=== PATIENT | male | born 1955 | race Caucasian/White ===

== ENCOUNTER 2019-07-06 05:08 | Emergency (ER) | payer BC ==
[~2019-07-06] VITALS: Ht 185.4 cm; Wt 102.1 kg
[~2019-07-06 05:08] MED LIST: ALLOPURINOL 30300 M1 PO; FLEXERIL PO; HYDROCODON-ACE1 EAC7 PO; IBUPROFEN 800800 M1 PO; PERCOCET PO; PRILOSEC 20 MG20 MG PO; TOPROL XL50 MG PO; ZESTORETIC 20-1 EACH PO
[2019-07-06] MEDS ORDERED: MITIGARE0.6 MG PO ×2 (05:44→06:22)
[2019-07-06] MEDS ORDERED: ALLOPURINOL 10100 M3 PO (05:44)
[2019-07-06] MEDS ORDERED: KEFLEX500 M1 PO (05:45)
[2019-07-06 06:01] LABS: MCV 87.6 fL (80.0-100.0); MPV 8.3 fl. (7.2-11.1)
[2019-07-06 06:03] LABS: ABSOLUTE BASOPHILS 0.1 thou/uL (0.0-0.2); ABSOLUTE EOSINOPHILS 0.1 thou/uL (0.0-0.7); ABSOLUTE LYMPHOCYTES 1.2 thou/uL (0.8-5.3); ABSOLUTE MONOCYTES 1.3 thou/uL (0.0-1.2); ABSOLUTE NEUTROPHILS 7.4 thou/uL (1.6-8.1); BASOPHILS 1.1 %; EOSINOPHILS 1.1 %; HEMATOCRIT 38.8 % (42.0-52.0); HEMOGLOBIN 13.2 gm/dL (14.0-18.0); LYMPHOCYTES 12.1 %; MCH 29.9 pg (26.0-34.0); MCHC 34.1 g/dL (28.0-37.0); MONOCYTES 12.4 %; NUCLEATED RBCS 0 /100WBC; PLATELET COUNT* 210 thou/uL (150-400); POLYS 73.3 %; RBC 4.43 mil/uL (4.50-6.00); RDW-CV 13.8 % (10.5-14.5); WBC 10.1 thou/uL (4.0-11.0)
[2019-07-06] MEDS ORDERED: NEURONTIN300 MG PO (06:19)
[2019-07-06 06:23] LABS: CALCIUM 8.9 mg/dL (8.5-10.1); CREATININE 0.9 mg/dL (0.6-1.3); POTASSIUM 4.1 mmol/L (3.5-5.1)
[2019-07-06 06:26] LABS: URIC ACID* 4.4 mg/dL (2.6-7.2)
[2019-07-06 06:27] VITALS: BP 151/77
== END 2019-07-07 00:34 | disposition left against medical advice (07) ==
LOC: M.ERS 05:08
PROVIDERS: Personal Emergency Response Attendant
DX: M10.072 Idiopathic gout, left ankle and foot (principal); I10 Essential (primary) hypertension

== ENCOUNTER 2019-07-08 05:11 | Inpatient (IN) | payer BC ==
[~2019-07-08] VITALS: Ht 188 cm; Wt 103.9 kg
--- NOTE | ~2019-07-08 | CON ---
[address] [address] CONSULTATION Name: ANTONELLAREHMAN WILFRED Room: [address] ADM IN M.R.#: [id number] Admission: 07/08/19 Attend Phys: Hallie Gibson Discharge: Date of : 57 Report #: [id number] THIS REPORT FOR: //name// CC: Daly Novak DATE OF SERVICE: 07/10/2019 CHIEF COMPLAINT: Postoperative day #1 for incision and drainage of left foot with soft tissue debridement for deep tissue infection. Preoperative and operative cultures pending. He is on parenteral vancomycin and ceftriaxone with good tolerance. He had PICC line placed today. Arterial Doppler studies performed today with pending report. He relates his pain is 2/10, well controlled with hydrocodone. He is nonweightbearing using a walker. No new labs for review. PHYSICAL EXAMINATION: The inflammation substantially decreased since yesterday. Large open wound with red granulation and some pale yellowish fibrosis. No active bleeding, no fluctuance or crepitation. There is a scant covering of the tissue over the 4th and 5th metatarsals. No fluctuance or crepitation. The foot is warm with no pallor, cyanosis or signs of acute vascular embarrassment. No popliteal adenopathy, negative Homans' or Bronson sign in either leg. IMPRESSION: Deep tissue infection, left foot, status post incision and drainage. PLAN: The wound was cleansed, dried and repacked with Nanosys, covered with ABDs, Kerlix and Terence. The patient to remain strictly nonweightbearing to the extremity. By: 1228 [id number] Morris DPM /nt
--- NOTE | ~2019-07-08 | CON ---
[address] [address] CONSULTATION Name: SHERIE BERMAN Room: [address] ADM IN M.R.#: [id number] Admission: 07/08/19 Attend Phys: Hallie Gibson Discharge: Date of : 57 Report #: [id number] THIS REPORT FOR: //name// CC: Daly Novak DATE OF SERVICE: 07/08/2019 ADDENDUM An aerobic and anaerobic swab cultures were taken from the abscess after it was incised. By: 1900 Dlandy Morris DPM /juan m
--- NOTE | ~2019-07-08 | OP ---
[facility] [address] [place] [address] OPERATIVE REPORT Name: ANTONELLAREHMANDEAN HARDIN Room: [address] IN M.R.#: [id number] Admission: 07/08/19 Attend Phys: Hallie Gibson Discharge: Date of : 57 Report #: [id number] THIS REPORT FOR: //name// CC: Daly Novak DATE OF SERVICE: 07/09/2019 SURGEON: Chan Morris DPM. PREOPERATIVE DIAGNOSIS: Abscess with deep soft tissue infection, left foot. POSTOPERATIVE DIAGNOSIS: Abscess with deep soft tissue infection, left foot. PROCEDURES: 1. Incision and drainage, left foot. 2. Debridement of wound with excision of muscle, tendon, and subcutaneous tissue from the deep fascial layer. 3. Curettage of left cuboid and proximal fourth and fifth metatarsal bones. ANESTHESIA: MAC. INJECTABLES: 30 mL of a 1:1 mixture of 0.5% Marcaine plain and 1% lidocaine plain preoperatively, and 10 mL of 0.5% Marcaine plain intraoperatively. CULTURES: Soft tissue, left foot, aerobic and anaerobic. ESTIMATED BLOOD LOSS: Minimal. TOURNIQUETS: None. COMPLICATIONS: None. DESCRIPTION OF PROCEDURE: The patient was brought to the OR and placed on the table supine with induction of MAC anesthesia. Local anesthetic block was given proximal to the deep tissue infection and the extremity was prepped and draped aseptically. A #10 blade was used to excise the existing ulceration with 2 semielliptical converging incisions, which was then sent for soft tissue aerobic and anaerobic culture. I then extended the incision proximally and distally with a #10 blade down to the bone and excised all visible necrotic soft tissue to include muscle, tendon, and deep subcutaneous tissue. The cuboid and base of the 4th and 5th metatarsals were visualized and curettaged with no lysis or signs of bone destruction noted. Electrocautery was used for hemostasis and the wound was flushed with sterile saline with bacitracin irrigant [place] [address] OPERATIVE REPORT Name: SHERIE BERMAN Room: [address] IN M.R.#: [id number] Admission: 07/08/19 Attend Phys: Hallie Gibson Discharge: Date of : 57 Report #: [id number] surgical wound was packed with Aquacel Ag and covered with fluffs, ABDs, Kerlix, and Terence bandage. The patient left the OR with no bleeding or pain. By: 54 Tejas Morris DPM /juan m
--- NOTE | ~2019-07-08 | CON ---
[address] [address] CONSULTATION Name: SHERIE BERMAN Room: [address] IN M.R.#: [id number] Admission: 07/08/19 Attend Phys: Hallie Gibson Discharge: Date of : 57 Report #: [id number] THIS REPORT FOR: //name// CC: Daly Novak ADMISSION DIAGNOSIS: Deep tissue infection, left foot. CHIEF COMPLAINT/HISTORY OF PRESENT ILLNESS: The patient admitted through the Emergency Department for increased redness, pain and drainage from the right dorsal lateral foot. He was seen in the Emergency Department 2 days ago regarding ongoing inflammation and pain to the dorsal lateral foot, which was thought to be gout and treated with colchicine. He has also restarted allopurinol with no decrease in pain or swelling. He was placed on cephalexin 500 mg p.o. b.i.d. and gabapentin 300 mg t.i.d. for infection and nerve pain. He was also placed on colchicine. He denies fevers or malaise, had some chills yesterday. He denies injury to the left foot or knowledge of skin abrasions or other lesions, which could be a portal of entry for the infection. He is on parenteral vancomycin and ceftriaxone with good tolerance. He is taking ibuprofen pain controlled with ibuprofen with hydrocodone 5/325 and ibuprofen. He is currently resting comfortably with mild pain, he has good appetite, denies fevers, chills, nausea or malaise. CT x-rays were negative for bone destruction, CT scan suggestive of abscess to the dorsal lateral foot with no bone changes. LABORATORY DATA: WBC 12.2, RBC 4.35, hemoglobin 12.9, hematocrit 38.0, platelets 265. BUN 15, creatinine 1.0, glucose 112. Albumin 3.1. Blood cultures pending x 2. PHYSICAL EXAMINATION: Temperature 98.4, pulse 70, respirations 18, blood pressure 102/63. Left foot has severe inflammation consistent with deep soft tissue infection with likely abscess. There is a wound to the dorsal lateral foot roughly 1.0 x 1.0 x 1.0 cm. The area is fluctuant. No crepitation. I am able to express purulence from the wound and it is exquisitely tender. This advanced inflammation consistent with cellulitis surrounding the area and extending to the ankle and lower leg. His foot is warm with good color. His foot has palpable dorsalis pedis and posterior tibial pulses, no pallor or cyanosis. No calf, no popliteal adenopathy noted. No lesions noted to the contralateral extremity. IMPRESSION: Deep tissue infection with abscess, right dorsal lateral foot. PLAN: The patient signed consent for incision and drainage of the left foot wound. I performed a local field block with 30 mL of 0.5% Marcaine plain and upon adequate and anesthesia was checked and found to be adequate. I performed a 2 cm incision over the existing wound with #10 blade and I expressed 2 mL of purulence. The wound was flushed with sterile saline and packed with dried and [address] [place] [place] [address] CONSULTATION Name: SHERIE BERMAN Room: [address] IN [facility]#: [id number] Admission: 07/08/19 Attend Phys: Hallie Gibson Discharge: Date of : 57 Report #: [id number] packed with Aquacel Ag and covered with Aquacel Ag, ABDs, Kerlix and Terence bandage. The patient to remain strictly nonweightbearing to the foot. I will keep him n.p.o. past midnight in case I decided to perform further surgical debridement tomorrow afternoon. I will check on him tomorrow for further. By: 1859 [id number] Morris DPM /juan m
[~2019-07-08 05:11] MED LIST changes: +ALLOPURINOL 10100 M3 PO; +KEFLEX500 M1 PO; +MITIGARE0.6 MG PO; +NEURONTIN300 MG PO
[2019-07-08 05:16] VITALS: BP 160/75
[2019-07-08 05:49] LABS: ABSOLUTE BASOPHILS 0.2 thou/uL (0.0-0.2); ABSOLUTE EOSINOPHILS 0.2 thou/uL (0.0-0.7); ABSOLUTE LYMPHOCYTES 1.2 thou/uL (0.8-5.3); ABSOLUTE MONOCYTES 1.6 thou/uL (0.0-1.2); ABSOLUTE NEUTROPHILS 9.2 thou/uL (1.6-8.1); BASOPHILS 1.2 %; EOSINOPHILS 1.4 %; HEMOGLOBIN 12.9 gm/dL (14.0-18.0); LYMPHOCYTES 9.5 %; MCH 29.6 pg (26.0-34.0); MCHC 33.9 g/dL (28.0-37.0); MCV 87.3 fL (80.0-100.0); MPV 8.1 fl. (7.2-11.1); NUCLEATED RBCS 0 /100WBC; PLATELET COUNT* 265 thou/uL (150-400); POLYS 74.9 %; RBC 4.35 mil/uL (4.50-6.00); RDW-CV 13.6 % (10.5-14.5); WBC 12.2 thou/uL (4.0-11.0)
[2019-07-08 05:53] LABS: CALCIUM 9.1 mg/dL (8.5-10.1)
[2019-07-08 05:57] LABS: ALBUMIN 3.1 g/dL (3.4-5.0); TOTAL BILIRUBIN 0.5 mg/dL (<0.1-1.0); TOTAL PROTEIN 7.8 g/dL (6.4-8.2)
[2019-07-08 07:25] VITALS: BP 134/55
[2019-07-08 07:50] VITALS: BP 127/64
[2019-07-08 17:15] VITALS: BP 102/63
[2019-07-08 23:01] VITALS: BP 117/61
[2019-07-09 04:39] LABS: HEMATOCRIT 34.3 % (42.0-52.0); HEMOGLOBIN 11.6 gm/dL (14.0-18.0); MCH 29.8 pg (26.0-34.0); MCHC 33.7 g/dL (28.0-37.0); MCV 88.4 fL (80.0-100.0); MPV 8.1 fl. (7.2-11.1); RBC 3.87 mil/uL (4.50-6.00); RDW-CV 13.5 % (10.5-14.5); WBC 9.2 thou/uL (4.0-11.0)
[2019-07-09 04:45] LABS: CALCIUM 8.8 mg/dL (8.5-10.1); POTASSIUM 4.3 mmol/L (3.5-5.1)
[2019-07-09 07:50] VITALS: BP 130/66
[2019-07-09 14:54] VITALS: BP 130/66
--- NOTE | 2019-07-09 15:19 | EKG ---
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1955 Requested By: [place] Order Number: [id number] Azul MD: Javier Marshall Measurements Intervals [place] Rate: 60 P: 21 RI: 138 QRS: 58 QRSD: 86 T: 39 QT: 403 QTc: 403 Interpretive Statements Sinus rhythm Atrial premature complexes Compared to ECG 08/09/2013 09:36:49 Atrial premature complex(es) now present T-wave abnormality no longer present Electronically Signed On 07-09-2019 15:19:25 MFT by Javier Marshall [email or web address] <ELECTRONICALLY SIGNED> By: Javier Marshall MD, [facility] 07/09/19 1519 1439 1439 Javier Marshall MD, [facility] /EPI
[2019-07-09 18:33] VITALS: BP 134/65
[2019-07-09 20:00] VITALS: BP 127/60
[2019-07-10 07:30] VITALS: BP 147/57
[2019-07-10 16:00] VITALS: BP 144/60
[2019-07-11 00:05] VITALS: BP 133/54
[2019-07-11 07:35] VITALS: BP 162/77
--- NOTE | 2019-07-11 11:50 | CON ---
[address] [address] CONSULTATION Name: ANTONELLASHERIE WILFRED Room: [address] IN M.R.#: [id number] Admission: 07/08/19 Attend Phys: Hallie Gibson Discharge: Date of : 57 Report #: [id number] THIS REPORT FOR: //name// CC: Daly Novak DATE OF SERVICE: 07/10/2019 INFECTIOUS DISEASE CONSULTATION ATTENDING PHYSICIAN: Dr. Novak. REASON FOR EVALUATION: Left foot skin and soft tissue infection with abscess. HISTORY OF PRESENT ILLNESS: Chart reviewed, patient examined. This is a 64-year-old gentleman with a history of gout who had onset apparently without antecedent injury of left plantar foot pain several days ago, initially was evaluated and felt to be perhaps related to gout. He was treated with anti-inflammatories; however, has only worsened, developed a localized area lateral mid foot, developed bullous lesion that ultimately was draining purulent bloody type discharge, had not been systemically ill. Denies any fevers or chills. No pulmonary or gastrointestinal related complaints. He was evaluated. Imaging raised question of possible subcutaneous abscess. He was taken to the OR, was felt to have a localized collection and it was debrided, noted operative report extended down to the bone. Cultures are pending. Empirically started on antimicrobial treatment including vancomycin and ceftriaxone. At this point, she has some mild residual pain. ALLERGIES: None. CURRENT MEDICATIONS: Include vancomycin, morphine, ceftriaxone, enoxaparin, allopurinol, gabapentin, ibuprofen, metoprolol, hydrocodone. PAST MEDICAL HISTORY: History of gout, hypertension, C6-C7 spinal fusion. SOCIAL HISTORY: Nonsmoker. Regular drinks. No illicit drug use. FAMILY HISTORY: Noncontributory. REVIEW OF SYSTEMS: Otherwise, 10-point review of systems unremarkable with the exception of the above. PHYSICAL EXAMINATION: GENERAL: He is alert, cooperative, appropriate. He is in mild distress, appears to be generally well nourished. VITAL SIGNS: Temperature 97.7, pulse 56, respirations 17, [place] [address] CONSULTATION Name: SHERIE BERMAN Room: [address] IN [facility]#: [id number] Admission: 07/08/19 Attend Phys: Hallie Gibson Discharge: Date of : 57 Report #: [id number] 147/57. SKIN: Warm, dry. No rashes. HEENT: Normocephalic. Extraocular muscles intact. NECK: Supple. LUNGS: Clear to auscultation bilaterally. HEART: Regular rate. Does have a systolic murmur; he states it has been present and evaluated by Cardiology including echocardiogram. ABDOMEN: Soft, nontender, nondistended. There is no organomegaly. EXTREMITIES: Distal left lower extremity has a surgical dressing in place with compression. GENITOURINARY: Deferred. RECTAL: Deferred. LABORATORY DATA: Blood cultures sterile thus far, reviewed the intraoperative report. MRSA PCR was negative. Most recent electrolytes: Sodium 140, potassium 4.3, chloride 103, bicarbonate 27, anion gap of 8, BUN and creatinine 15 and 1.0. Estimated GFR of 75. CBC: White count 9.2, H and H 11.6 and 34.3, platelets of 277,000. CT foot preop suggests diffuse cellulitis, diffuse soft tissue thickening particularly involving the lateral aspect of the mid foot with suggestion of possible soft tissue abscess along the lateral mid foot, no bone destruction. ASSESSMENT AND PLAN: Skin and soft tissue infection of left foot with abscess post-evacuation and debridement. Agree with empiric antimicrobial therapy. We will await culture results to further define down. He is getting a PICC line. It is not unreasonable to continue parenteral therapy post-discharge. Wound care as per Dr. Morris. <ELECTRONICALLY SIGNED> By: Emmett Zavaleta MD 07/11/19 1150 1009 [id number] Zavaleta MD /nt
[2019-07-11 15:51] VITALS: BP 135/69
[2019-07-11 19:45] VITALS: BP 122/49
[2019-07-12 07:40] VITALS: BP 150/53
[2019-07-12] MEDS ORDERED: NORCO 5-325 TA1 EAC1 PO (13:49)
[2019-07-12 15:06] VITALS: BP 150/53
[2019-07-12 16:00] VITALS: BP 112/54
[2019-07-12 16:42] VITALS: BP 150/53
== END 2019-07-12 17:30 | disposition home health service (06) | DRG 982 ==
LOC: M.ERS 05:11 → M.3W 06:06 → M.TBA-ER 06:06 → M.3W 07:45
PROVIDERS: Family Medicine; Personal Emergency Response Attendant; ADMIT Internal Medicine
PROC: 0LBW0ZZ Excision of Left Foot Tendon, Open Approach (ICD-10-PCS; principal; 2019-07-09)
PROC: 05HY33Z Insertion of Infusion Device into Upper Vein, Percutaneous Approach (ICD-10-PCS; 2019-07-11)
DX: L02.612 Cutaneous abscess of left foot (principal); L03.116 Cellulitis of left lower limb; I10 Essential (primary) hypertension; M10.9 Gout, unspecified; B95.61 Methicillin susceptible Staphylococcus aureus infection as the cause of diseases classified elsewhere; Z79.899 Other long term (current) drug therapy

== ENCOUNTER → 2019-07-25 | Outpatient (CLI) | payer BC ==
[~2019-07-25] MED LIST changes: +NORCO 5-325 TA1 EAC1 PO
--- NOTE | 2019-07-26 06:25 | CON ---
[address] [address] CONSULTATION Name: SHERIE BERMAN Room: [facility].#: [id number] Admission: 07/25/19 Attend Phys: Chan Morris DPM Discharge: Date of : 57 Report #: [id number] THIS REPORT FOR: //name// CC: Chan Morris Daly Jimmy-Inder DATE OF SERVICE: 07/25/2019 INFECTIOUS DISEASE CONSULTATION FOLLOWUP ATTENDING PHYSICIAN: Chan Morris DPM HISTORY OF PRESENT ILLNESS: The patient returns today in followup, having been hospitalized, developed a skin and soft tissue abscess on the lateral aspect of his left foot, underwent operative debridement. He has ulceration that extends into the subcutaneous tissue perhaps piercing the most as well. He does have significant amount of pain associated with it. He has been on cefazolin for roughly 2 weeks, scheduled for 3-4 week course, eventually grew out Staphylococcus aureus. He denies any systemic illness. Appetite has been fair. No pulmonary or gastrointestinal related complaints. ASSESSMENTAND PLAN: Left lateral foot wound with previous ____of the subcutaneous abscess. We will continue the cefazolin as prescribed at least 1-2 additional weeks. We will see his back on a weekly basis. Continue weekly labs, wound care per Dr. Morris. <ELECTRONICALLY SIGNED> By: Emmett Zavaleta MD 07/26/19 0625 36 [id number] Zavaleta MD /juan m
== END ==
LOC: M.WC 14:00
DX: T81.89XA Other complications of procedures, not elsewhere classified, initial encounter (principal); L89.893 Pressure ulcer of other site, stage 3; L03.116 Cellulitis of left lower limb; I10 Essential (primary) hypertension; M10.9 Gout, unspecified; Y92.89 Other specified places as the place of occurrence of the external cause; Y83.8 Other surgical procedures as the cause of abnormal reaction of the patient, or of later complication, without mention of misadventure at the time of the procedure

== ENCOUNTER → 2019-08-01 | Outpatient (CLI) | payer BC ==
--- NOTE | 2019-08-02 16:47 | CON ---
[address] [address] CONSULTATION Name: SHERIE BERMANIG [facility] [id number] Admission: 08/01/19 Attend Phys: Chan Morris DPM Discharge: Date of : 57 Report #: [id number] THIS REPORT FOR: //name// CC: Chan Lopezeen Jimmy-Inder DATE OF SERVICE: 08/01/2019 ATTENDING PHYSICIAN: Dr. Chan Morris SUBJECTIVE: The patient returns today in followup, ongoing treatment for a wound involving the lateral aspect of the left foot at the site of previous skin and soft tissue infection with abscess post evacuation. He still has significant amount of pain associated with the foot, although it is overall better. He denies systemic illness. Generally, his appetite has been good, undergoing wound care by Dr. Morris. On evaluation, the wound post-debridement is clearly improved. There is a degree of granulation tissue and overall the depth has decreased. Surface inflammation is diminished as well. ASSESSMENT AND PLAN: Left lateral foot wound. We will continue current antibiotics as prescribed. We will see him in followup in a couple of weeks with Dr. Morris. Continue wound care as prescribed and a suggestion that offloading is going to be ongoing for at least another several weeks. Try to optimize his nutritional status. <ELECTRONICALLY SIGNED> By: Emmett Zavaleta MD 08/02/19 1647 0819 0834Emmett Zavaleta MD /juan m
== END ==
LOC: M.WC 03:56
DX: T81.89XD Other complications of procedures, not elsewhere classified, subsequent encounter (principal); I10 Essential (primary) hypertension; L89.893 Pressure ulcer of other site, stage 3; L03.116 Cellulitis of left lower limb; M10.9 Gout, unspecified; Y83.8 Other surgical procedures as the cause of abnormal reaction of the patient, or of later complication, without mention of misadventure at the time of the procedure

== ENCOUNTER → 2019-08-08 | Outpatient (CLI) | payer BC ==
--- NOTE | 2019-08-10 07:29 | CON ---
[address] [address] CONSULTATION Name: SHERIE BERMAN WILFRED Room: [facility] Joelle.#: [id number] Admission: 08/08/19 Attend Phys: Chan Morris DPM Discharge: Date of : 57 Report #: [id number] THIS REPORT FOR: //name// CC: Chan Kauffman Jimmy-Inder DATE OF SERVICE: 08/08/2019 INFECTIOUS DISEASE CONSULTATION REPORT ATTENDING PHYSICIAN: Dr. Chan Morris. HISTORY OF PRESENT ILLNESS: The patient returns in followup treatment for left lateral foot ulceration, he has had a previous subcutaneous abscess due to Staphylococcus where parental therapy was ____. Overall, he has improved, significantly less pain than previous. He denies any systemic illness at this point. His appetite has been generally pretty good. On examination, the wound show improvement. On probing, there is very little undermining. There is no communication with hard tissue at this point. ASSESSMENT AND PLAN: Left lateral foot wound at the site of previous subcutaneous abscess evacuation. At this point, I think it is reasonable to discontinue the parenteral antibiotics and observe due to the overlap for the moment. He will follow up in Wound Care in one week. <ELECTRONICALLY SIGNED> By: Emmett Zavaleta MD 08/10/19 0729 0615 [id number] Zavaleta MD /nt
== END ==
LOC: M.WC 05:13
DX: T81.89XD Other complications of procedures, not elsewhere classified, subsequent encounter (principal); L89.893 Pressure ulcer of other site, stage 3; L03.116 Cellulitis of left lower limb; I10 Essential (primary) hypertension; M10.9 Gout, unspecified; Y83.8 Other surgical procedures as the cause of abnormal reaction of the patient, or of later complication, without mention of misadventure at the time of the procedure

== ENCOUNTER → 2019-08-15 | Outpatient (CLI) | payer BC ==
--- NOTE | 2019-08-16 12:35 | CON ---
[address] [address] CONSULTATION Name: SHERIE BERMAN Room: [facility].#: [id number] Admission: 08/15/19 Attend Phys: Chan Morris DPM Discharge: Date of : 57 Report #: [id number] THIS REPORT FOR: //name// CC: Chan Morris Daly Jimmy-Inder DATE OF SERVICE: 08/15/2019 INFECTIOUS DISEASE CONSULTATION ATTENDING PHYSICIAN: Chan Morris DPM. HISTORY OF PRESENT ILLNESS: The patient returns for followup, necrotizing infection involving the lateral aspect of his left foot, had a residual wound post-debridement, it has been overall quite tender, although it has improved. He has completed an extended course of antibiotics. He has been off them last few days without evidence of relapse. He does have some residual pain, although it is improved. Denies any systemic illness. On examination, he is just showing overall decrease in the depth, dimensions decreased as well. There is a good granulation tissue. Overall degree of inflammation is now mild, slight bit of undermining at about 7-9 on the clock dial. Left lateral foot necrotizing infection. At this point, would not extend the antibiotics. Continue wound care as prescribed. We will see him as needed. <ELECTRONICALLY SIGNED> By: Emmett Zavaleta MD 08/16/19 1235 0826 [id number] Zavaleta MD /juan m
== END ==
LOC: M.WC 05:17
DX: T81.89XD Other complications of procedures, not elsewhere classified, subsequent encounter (principal); L89.893 Pressure ulcer of other site, stage 3; L03.116 Cellulitis of left lower limb; I10 Essential (primary) hypertension; M10.9 Gout, unspecified; Y83.8 Other surgical procedures as the cause of abnormal reaction of the patient, or of later complication, without mention of misadventure at the time of the procedure

== ENCOUNTER → 2019-08-30 | Outpatient (CLI) | payer BC | LOC: M.WC 07:41 | DX: T81.89XD Other complications of procedures, not elsewhere classified, subsequent encounter (principal); L89.893 Pressure ulcer of other site, stage 3; L03.116 Cellulitis of left lower limb; I10 Essential (primary) hypertension; M10.9 Gout, unspecified; Z98.1 Arthrodesis status; Y83.8 Other surgical procedures as the cause of abnormal reaction of the patient, or of later complication, without mention of misadventure at the time of the procedure ==

== ENCOUNTER → 2019-09-05 | Outpatient (CLI) | payer BC | LOC: M.WC 04:56 | DX: T81.89XD Other complications of procedures, not elsewhere classified, subsequent encounter (principal); L89.893 Pressure ulcer of other site, stage 3; L03.116 Cellulitis of left lower limb; I10 Essential (primary) hypertension; M10.9 Gout, unspecified; Y83.8 Other surgical procedures as the cause of abnormal reaction of the patient, or of later complication, without mention of misadventure at the time of the procedure ==

== ENCOUNTER → 2019-09-12 | Outpatient (CLI) | payer BC | LOC: M.WC 07:18 | DX: T81.89XD Other complications of procedures, not elsewhere classified, subsequent encounter (principal); L89.893 Pressure ulcer of other site, stage 3; L03.116 Cellulitis of left lower limb; I10 Essential (primary) hypertension; M10.9 Gout, unspecified; Y83.8 Other surgical procedures as the cause of abnormal reaction of the patient, or of later complication, without mention of misadventure at the time of the procedure ==

== ENCOUNTER → 2019-09-19 | Outpatient (CLI) | payer BC | LOC: M.WC 05:06 | DX: T81.89XD Other complications of procedures, not elsewhere classified, subsequent encounter (principal); L89.893 Pressure ulcer of other site, stage 3; L03.116 Cellulitis of left lower limb; I10 Essential (primary) hypertension; M10.9 Gout, unspecified; Y83.8 Other surgical procedures as the cause of abnormal reaction of the patient, or of later complication, without mention of misadventure at the time of the procedure ==

== ENCOUNTER → 2019-09-26 | Outpatient (CLI) | payer BC | LOC: M.WC 04:24 | DX: T81.89XD Other complications of procedures, not elsewhere classified, subsequent encounter (principal); L89.893 Pressure ulcer of other site, stage 3; L03.116 Cellulitis of left lower limb; I10 Essential (primary) hypertension; M10.9 Gout, unspecified; Y83.8 Other surgical procedures as the cause of abnormal reaction of the patient, or of later complication, without mention of misadventure at the time of the procedure ==

== ENCOUNTER → 2019-10-03 | Outpatient (CLI) | payer BC | LOC: M.WC 02:22 | DX: T81.89XD Other complications of procedures, not elsewhere classified, subsequent encounter (principal); L89.893 Pressure ulcer of other site, stage 3; L03.116 Cellulitis of left lower limb; I10 Essential (primary) hypertension; M10.9 Gout, unspecified; Y83.8 Other surgical procedures as the cause of abnormal reaction of the patient, or of later complication, without mention of misadventure at the time of the procedure ==

== ENCOUNTER → 2019-10-10 | Outpatient (CLI) | payer BC | LOC: M.WC 01:32 | DX: T81.89XD Other complications of procedures, not elsewhere classified, subsequent encounter (principal); L89.893 Pressure ulcer of other site, stage 3; L03.116 Cellulitis of left lower limb; I10 Essential (primary) hypertension; M10.9 Gout, unspecified; Y83.8 Other surgical procedures as the cause of abnormal reaction of the patient, or of later complication, without mention of misadventure at the time of the procedure ==

== ENCOUNTER → 2019-10-17 | Outpatient (CLI) | payer BC | LOC: M.WC 00:18 | DX: T81.89XD Other complications of procedures, not elsewhere classified, subsequent encounter (principal); L89.893 Pressure ulcer of other site, stage 3; L03.116 Cellulitis of left lower limb; I10 Essential (primary) hypertension; M10.9 Gout, unspecified; Y83.8 Other surgical procedures as the cause of abnormal reaction of the patient, or of later complication, without mention of misadventure at the time of the procedure ==

== ENCOUNTER 2021-08-31 05:50 | Emergency (ER) | payer BC, MEDICARE ==
[~2021-08-31] VITALS: Ht 185.4 cm; Wt 104.3 kg
[2021-08-31] MEDS ORDERED: ZPAK PO (08:18)
[2021-08-31] MEDS ORDERED: PROMETH-CODEIN 65 ML PO (08:18)
[2021-08-31] MEDS ORDERED: VENTOLIN HFA 1818 GM INH (08:18)
[2021-08-31] MEDS ORDERED: DEXAMETHASONE 44 M1 PO (08:18)
[2021-08-31 08:24] VITALS: BP 131/69
== END 2021-08-31 08:25 | disposition home or self-care (01) ==
LOC: M.ERS 05:50
DX: U07.1 COVID-19 (principal); I10 Essential (primary) hypertension; M10.9 Gout, unspecified; Z98.890 Other specified postprocedural states